=== PATIENT | female | born 2005 | race Caucasian/White ===

== ENCOUNTER 2024-10-08 07:50 | Emergency (ER) | payer OTHER, SELFPAY ==
[2024-10-08 07:52] VITALS: BP 145/100
--- NOTE | 2024-10-08 08:11 | ED.GENMED ---
History of Present Illness
General
Chief Complaint: Ear Problem
Source: patient
Exam Limitations: none
Time Seen by Provider: 10/08/24 08:02
Nursing documentation reviewed up to this point in time: agreed with
History of Present Illness
History of Present Illness:
19-year-old female presenting to the emergency department with left sided jaw pain seems to be worse in the morning ongoing for a week and a half slightly worse today. Denies specific discomfort with chewing or to her teeth. Has not seen a dentist
recently. Denies any fevers recent illness.
Review of Systems
Review of Systems
Allergies reviewed?: Yes
All Other Systems: ROS reviewed and negative except as documented in HPI and ROS
Phy Exam
Physical Exam
Physical Exam:
GENERAL: Alert , in no apparent distress
EYE: pupils equal and reactive
NECK: Supple, no significant adenopathy.
ENT: o/p clr, mmm.
CARDIAC: Regular rate and rhythm .
LUNGS: Clear breath sounds bilaterally, no acute respiratory distress, no wheezes/rales/rhonchi
ABDOMEN: Soft, without focal tenderness, no r/g, no cvat
NEUROLOGICAL: Alert and oriented, no focal neuro deficits
SKIN: Warm and dry, skin intact.
MUSCULOSKELETAL: No edema, well perfused.
PSYCH: Normal and appropriate interaction.
Course
Orders/Labs/Results
Orders:
Orders
10/08/24 08:09
Ketorolac [Toradol] 30 mg IM NOW STA
Vital Signs
Initial and Last Documented VS:
Initial Vital Signs
Temp Pulse Resp BP Pulse Ox
98.2 F 78 16 145/100 98
10/08/24 07:52 10/08/24 07:52 10/08/24 07:52 10/08/24 07:52 10/08/24 07:52
Last Documented Vital Signs
Temp Pulse Resp BP Pulse Ox
98.2 F 78 16 145/100 98
10/08/24 07:52 10/08/24 07:52 10/08/24 07:52 10/08/24 07:52 10/08/24 07:52
MDM/Problems Addressed
MDM/Problems Addressed:
19-year-old female presenting to the emergency department today with concerns of left-sided jaw discomfort seems to be worse in the morning. Worsening over the past 2 days but somewhat ongoing over the past week and a half. On arrival vital signs
are normal patient no distress no visual abnormalities to the ear external ear no lymphadenopathy no changes to the tympanic membrane. Dentition is poor with poor dental hygiene however no obvious redness or swelling normal posterior pharynx. No
evidence of emergent pathology or bacterial infection. Patient could have TMJ D with description of symptoms. Plan for protective measures and close outpatient follow-up. Return precautions given.
*Critical Care Note
Total Time (30-74mins, 75-104mins- exclusive of procedures): Not Applicable
ED Attending Note
-
Portions of this chart may have been created with voice recognition software.� Occasional wrong word or��sound alike� substitutions may have occurred due to the inherent limitations of voice recognition software.
Discharge Plan
Departure
Patient Disposition: Home (Routine Discharge)
Date of Disposition: 10/08/24
Time of Disposition: 08:11
Patient with high blood pressure during this ER visit?: No
Condition: Good
Covid-19: Not Applicable
Discharge Problem:
Jaw pain
Instructions: Temporomandibular joint (TMJ) disorders
Prescriptions:
No Action
Vitamax Tablet Chewable
1 tab PO DAILY
Referrals:
Siddharth Acosta MD [Active] -
Activity Restrictions/Additional Instructions:
You came to the emergency department today with concerns of discomfort towards her ear and the jaw. This could be TMJD. Please get a mouthguard and use Motrin at home and follow-up if symptoms are ongoing. Return for any worsening, new or
concerning symptoms.
Interventions
Interventions:
*Risk Screen - Suicide Last Done: 10/08/24 07:52
*Neglect/Abuse Screening Last Done: 10/08/24 07:52
Discharge Date and Time
Print Language: LITHUANIAN
[2024-10-08] MEDS: TORADOL 30 MG IM (08:21)
== END 2024-10-08 08:35 | disposition home or self-care (01) ==
LOC: EMR 07:50
PROVIDERS: EMERGENCY PHYSICIAN Emergency Medicine; FAMILY PHYSICIAN Family Medicine
DX: R68.84 Jaw pain (principal)
CPT/HCPCS: 99284; 96374